=== PATIENT | male | born 1965 | race Caucasian/White ===

== ENCOUNTER 2024-05-30 10:29 | Emergency (ER) | payer OTHER ==
[2024-05-30] MEDS ORDERED: ONDANSETRON 4 MG/2 ML VIAL ONE (12:29)
[2024-05-30] MEDS ORDERED: ACETAMINOPHEN TAB 325 MG TAB ONE (12:30)
[2024-05-31] MEDS ORDERED: methylPREDNISolone SOD SUCCI 125 MG/2 ML VIAL ONE (09:33)
--- NOTE | 2024-06-30 10:16 | CT ---
EXAM: CT abdomen pelvis with IV contrast. DATE: 05/30/2024 INDICATION: Patient age:KEN CHENG : 1965 Reason for study: Lower Abd Pain X 2 weeks. COMPARISON: None, please note PACS downtime occurred during the radiologist interpretation of these i mages with limited priors/reports.. TECHNIQUE: CT abdomen pelvis with IV contrast, with axial imaging and sagittal and coronal reformats following t he administration of 100 cc of Isovue-300 IV contrast material.. One or more CT dose reduction strate gies were utilized during this examination. Total DLP administered was 741.6mGycm. FINDINGS: LOWER CHEST: Unremarkable ABDOMEN LIVER: Unremarkable GALLBLADDER AND BILE DUCTS: Irregular appearance of the gallbladder wall. PANCREAS: Unremarkable. SPLEEN: Unremarkable. ADRENAL GLANDS: Unremarkable. KIDNEYS AND URETERS: No evidence of hydronephrosis or renal calculus. The ureters are unremarkable. PELVIS BLADDER: Nodule of the left bladder wall measuring 9 mm and another measuring 4 mm. REPRODUCTIVE: Hydroceles bilaterally. ABDOMEN & PELVIS STOMACH AND BOWEL: Stomach and duodenum are unremarkable. The appendix is surgically absent. No evide nce of bowel obstruction. PERITONEUM: No evidence of pneumoperitoneum or free fluid. VASCULATURE: Mild atherosclerotic calcifications are present throughout the abdominal aorta and its b ranches. MUSCULOSKELETAL: Mild disc degeneration changes are present throughout the thoracolumbar spine. LYMPH NODES: No gross evidence for lymphadenopathy. SOFT TISSUE/ABDOMINAL WALL: Unremarkable IMPRESSION: 1. No evidence for acute lower quadrant process. 2. Focal thickening of the left bladder wall into areas, correlate with direct visualization to excl ude malignancy correlate with urinalysis. 3. Irregular appearance of the gallbladder wall with subtle nodularity. Correlate with ultrasound if not recently performed. Findings could represent adenomyomatosis.
== END 2024-05-30 16:40 | disposition home or self-care (01) ==
LOC: EC 10:29
CPT/HCPCS: 74177; 96374; 99284

== ENCOUNTER 2024-07-01 07:20 | Day surgery (SDC) | payer OTHER ==
[2024-06-30 09:13] VITALS: BMI 19.2
[2024-07-01 07:49] VITALS: TEMP 97
[2024-07-01] MEDS: IV FLUID CONTINUATION 1,000 ML IV ONE (07:57)
[2024-07-01] MEDS: LACTATED RINGERS 1,000 ML IV SCH (07:58)
[2024-07-01 08:03] LABS: Glucose,Whole Blood 98 mg/dL (70-110)
[2024-07-01] MEDS ORDERED: PROPOFOL 10 MG/ML 20 ML VIAL IV ONE (08:32)
[2024-07-01] MEDS ORDERED: LIDOCAINE 2% (PF) 20 MG/ML 5 ML VIAL ONE (08:32)
--- NOTE | 2024-07-01 09:01 | P.PCN ---
Date of Procedure: 07/01/24 Procedure(s) Performed: PREOPERATIVE DIAGNOSIS: Rectal bleeding, abdominal pain POSTOPERATIVE DIAGNOSIS: Gastritis with erosions, duodenitis, ascending colon polyp x 2, sigmoid colon polyp PROCEDURE: 1. EGD with biopsy 2. Colonoscopy with snare polypectomy [place] [facility] [place]: Erick Ortega M.D. SPECIMENS: Antrum, colon polyps ENDOSCOPIC PROCEDURE: The patient was on the endoscopy table in the left decubitus position. The Olympus gastroscope was inserted into the oropharynx and passed under direct visualization to the region of the third portion of the duodenum. From that point the scope was slowly withdrawn inspecting all surfaces carefully. There was mild duodenitis present in the first and second portion of the duodenum without ulceration noted. The pylorus was widely patent. The stomach was carefully inspected. There was gastritis with small erosions present. A biopsy of the antrum took place to rule out H. pylori. Retroflexion revealed a normal hiatus. The esophagus was then carefully examined. There were no neoplastic inflammatory or polypoid lesions throughout the visualized esophagus. The patient was kept on the endoscopy table in the left decubitus position. The Olympus colonoscope was inserted into the anus and passed under direct visualization to the base of the cecum. The appendiceal orifice was visualized. From that point the scope was slowly withdrawn inspecting all surfaces carefully. There were no neoplastic inflammatory or polypoid lesions throughout the cecum. In the ascending colon 2 polyps were seen and removed using the snare with cautery technique. The transverse descending colon appeared normal. In the sigmoid colon another small polyp was seen and removed in a similar fashion. The remainder of the sigmoid and rectum was normal. Digital rectal examination was normal. The patient was taken to the recovery room in stable c ondition per anesthesia guidelines. RECOMMENDATIONS: Await biopsy results. CAT scan noted from yesterday. Will order urology evaluation of bladder wall thickening and gallbladder ultrasound.
[2024-07-01 09:05] VITALS: RESP 16
[2024-07-01 09:30] VITALS: BP 183/91; PULSE 91
== END 2024-07-01 09:52 | disposition home or self-care (01) ==
LOC: ORWHC2ENDO 07:20
PROVIDERS: ATTEND Surgery
DX: K63.5 Polyp of colon (principal); K29.80 Duodenitis without bleeding; K29.70 Gastritis, unspecified, without bleeding; K25.9 Gastric ulcer, unspecified as acute or chronic, without hemorrhage or perforation
CPT/HCPCS: 43239; 45385; 88305; 88342

== ENCOUNTER → 2024-07-04 | Outpatient (CLI) | payer OTHER ==
--- NOTE | 2024-07-04 12:48 | US ---
EXAMINATION TYPE: US gallbladder DATE OF EXAM: 07/04/2024 COMPARISON: CT 2023 CLINICAL INDICATION: Male, 59 years old with history of R10.13 Epigastric pain; TECHNIQUE: Multiple sonographic images of the right upper quadrant are obtained. FINDINGS: EXAM MEASUREMENTS: Liver Length: 15.9 cm Gallbladder Wall: 0.2 cm CBD: 0.4 cm Right Kidney: 10.4 x 4.4 x 4.6 cm Pancreas: visualized portions wnl, limited by overlying midline bowel gas Liver: wnl Gallbladder: full of stones, visualized portions of wall appear wnl Evidence for sonographic Cruz's sign: no CBD: visualized portions wnl, limited by overlying bowel gas Right Kidney: wnl The visualized portions of the pancreas unremarkable. Liver is unremarkable without focal lesion. Gal lbladder is full of shadowing stones. No wall thickening. No surrounding fluid. Negative sonographic Cruz sign. Common bile duct is within normal limits. Right kidney is unremarkable without evidence of shadowing calculi, hydronephrosis, or solid mass. IMPRESSION: Gallbladder is full of stones without ultrasound evidence for acute cholecystitis.
== END | disposition home or self-care (01) ==
LOC: RADUSWWP 09:08
PROVIDERS: ATTEND Surgery
DX: K80.20 Calculus of gallbladder without cholecystitis without obstruction (principal)
CPT/HCPCS: 76705

== ENCOUNTER → 2024-08-08 | Outpatient (CLI) | payer OTHER ==
[2024-08-08 15:24] LABS: Basophils # (A) 0.05 X 10*3/uL (0.00-0.10); Basophils % (A) 0.8 %; Eosinophils # (A) 0.66 X 10*3/uL (0.04-0.35); HCT 48.1 % (39.6-50.0); HGB 15.4 g/dL (13.0-17.0); Lymphocytes # (A) 1.25 X 10*3/uL (0.90-5.00); Lymphocytes % (A) 18.9 %; MCH 28.6 pg (27.0-32.0); MCV 89.4 FL (80.0-97.0); Mean Platelet Volume 11.8 FL (9.5-12.2); Monocytes # (A) 0.48 X 10*3/uL (0.20-1.00); Monocytes % (A) 7.3 %; NRBC Per 100 WBC 0 X 10*3/uL (0.00-0.01); Neutrophils # (A) 4.15 X 10*3/uL (1.80-7.70); Neutrophils % (A) 62.5 %; Platelet Count 172 X 10*3/uL (140-440); RBC 5.38 X 10*6/uL (4.40-5.60); RDW 15.1 % (11.5-14.5); WBC 6.62 X 10*3/uL (4.50-10.00)
[2024-08-08 15:36] LABS: BUN/Creat Ratio 8.22 Ratio (12.00-20.00); Blood Urea Nitrogen 7.4 mg/dL (9.0-27.0); Chloride 102 mmol/L (96-109); Glucose 92 mg/dL (70-110); Potassium 4.6 mmol/L (3.5-5.5); Sodium 141 mmol/L (135-145)
== END | disposition home or self-care (01) ==
LOC: LABWHC1 08:43
PROVIDERS: ATTEND Urology
DX: C67.9 Malignant neoplasm of bladder, unspecified (principal)
CPT/HCPCS: 36415; 80048; 85025

== ENCOUNTER → 2024-09-15 | Day surgery (SDC) | payer OTHER ==
[2024-09-12 10:59] VITALS: BMI 20.7
[~2024-09-15] MED LIST: ACETAMINOPHEN TAB 325 MG TAB PO SCH; GLYCOPYRROLATE 0.2 MG/ML 2 ML VIAL ONE; HYDROmorphone (PF) 1 MG/ML ONE; IBUPROFEN 600 MG TAB PO SCH; KETOROLAC 15 MG/ML 1 ML VIAL ONE; LIDOCAINE 1% (10MG/ML) FOR IV START INTRADERMA PRN; LIDOCAINE 1% INJ 10MG/ML (20 ML MDV) ONE; MIDAZOLAM 2 MG/2 ML VIAL ONE; NEOSTIGMINE 1 MG/ML 10 ML VIAL ONE; PROPOFOL 10 MG/ML 20 ML VIAL IV ONE; ROCURONIUM 10 MG/ML (5 ML VIAL) IV ONE; SUCCINYLCHOLINE CHLORIDE 200 MG/10 ML VIAL IV ONE; droPERidol 5 MG/2 ML VIAL IVP ONE; fentaNYL (PF) 50 MCG/ML 2 ML AMP ONE
[2024-09-15] MEDS: IV FLUID CONTINUATION 1,000 ML IV ONE (08:00)
[2024-09-15] MEDS: HEPARIN SODIUM,PORCINE 5,000 UNIT/ML 1 ML VIAL SQ PRN (08:18)
[2024-09-15] MEDS: LACTATED RINGERS 1,000 ML IV SCH (08:19)
[2024-09-15] MEDS: ACETAMINOPHEN TAB 500 MG TAB PO PRN (08:19)
[2024-09-15] MEDS: ONDANSETRON 4 MG/2 ML VIAL IVP ONE (08:19)
[2024-09-15] MEDS: DEXAMETHASONE SOD PHOSPHATE 4 MG/ML 1 ML VIAL IVP STA (08:20)
--- NOTE | 2024-09-15 08:33 | P.GSHP ---
History of Present Illness H&P Date: 09/15/24 Chief Complaint: Chronic cholecystitis 59-year-old male seen in the office in June. Patient was having complaints of upper abdominal pain, early satiety, weight loss, some melanotic stools although taking Pepto dismal. Patient underwent upper and lower endoscopy. Ashish jarvis that ordered a CAT scan abdomen pelvis which showed gallbladder nodularity and thickening of his bladder wall. Patient was seen by urology. He was found to have a small bladder tumor that was treated endoscopically. Patient had an ultrasound showing numerous gallstones. Patient still having abdominal issues and complaints of nausea, early satiety, and upper abdominal pain. Spoke with patient by phone and have decided to proceed with laparoscopic cholecystectomy at this time. Past Medical History Past Medical History: Diabetes Mellitus, GERD/Reflux, Hypertension Additional Past Medical History / Comment(s): no HTN medication currently. diet controlled DM. GALLBLADDER DISORDER History of Any Multi-Drug Resistant Organisms: None Reported Past Surgical History: Appendectomy Additional Past Surgical History / Comment(s): COLONOSCOPY/EGD Past Anesthesia/Blood Transfusion Reactions: No Reported Reaction Smoking Status: Current every day smoker - Past Family History Mother Family Medical History: Cancer Father Family Medical History: Cancer Sister(s) Family Medical History: Cancer Medications and Allergies Home Medications Medication Instructions Recorded Confirmed Type Ondansetron [Zofran] 4 mg PO Q8HR PRN 06/30/24 09/15/24 History Omeprazole [PriLOSEC] 20 mg PO AC-BRKFST #90 cap 07/01/24 09/15/24 Rx Acetaminophen [Tylenol] 650 mg PO DAILY PRN 09/15/24 09/15/24 History Allergies Allergy/AdvReac Type Severity Reaction Status Date / Time No Known Allergies Allergy Verified 09/15/24 07:59 Surgical - Exam Vital Signs Temp Pulse Resp BP Pulse Ox 97.0 F L 79 16 187/85 99 09/15/24 07:57 09/15/24 07:57 09/15/24 07:57 09/15/24 07:57 09/15/24 07:57 Physical exam: General: Well-developed, thin appearing HEENT: Normocephalic, sclerae nonicteric Abdomen: Nontender, nondistended Extremities: No edema Neuro: Alert and oriented Assessment and Plan (1) Chronic cholecystitis Narrative/Plan: Will proceed with laparoscopic, possible open cholecystectomy at this time. Risks of bleeding, infection, bile leak, bile duct injury, retained common bile duct stone, trocar injury, conversion to an open procedure, hernia, anesthesia related complications were reviewed. The patient understands and wishes to proceed. Current Visit: Yes Status: Acute Code(s): K81.1 - CHRONIC CHOLECYSTITIS SNOMED Code(s): 06070253
[2024-09-15] MEDS: IPRATROPIUM-ALBUTEROL 3 ML NEB INHALATION STA (08:34)
[2024-09-15] MEDS: BUPIVACAINE (PF) 0.25% 30 ML VIAL SQ ONE ×2 (09:46)
[2024-09-15] MEDS: LACTATED RINGERS 1,000 ML IV ONE (09:56)
[2024-09-15 11:03] VITALS: TEMP 97.4
--- NOTE | 2024-09-15 11:06 | P.OP ---
Date of Procedure: 09/15/24 Procedure(s) Performed: PREOPERATIVE DIAGNOSIS: Chronic cholecystitis POSTOPERATIVE DIAGNOSIS: Same PROCEDURE: Laparoscopic cholecystectomy SURGEON: Shannon EBL: Minimal see anesthesia record ANESTHESIA: Gen. COMPLICATIONS: None OPERATIVE PROCEDURE: The patient was brought and placed on the operating room table in the supine position. The patient was placed under general anesthesia at that time. The abdomen was prepped and draped in the usual sterile fashion. A small vertical infraumbilical incision was made. The fascia was grasped with the Sindhu forceps. The fascia was retracted anteriorly. The Veress needle was advanced into the peritoneal cavity. The saline drop test was normal. Insufflation took place up to 15 mmHg. A 5 mm optical trocar was advanced and the peritoneal cavity. 2 additional 5 mm trochars were placed in the right upper quadrant under direct visualization. A 12 mm trocar was advanced into the epigastric incision site. The gallbladder was extremely indurated and essentially solid. There was some adhesions between the omentum and the gallbladder that were lysed using electrocautery. Thankfully once we were able to visualize the infundibulum of the junction with the common bile duct and distal infundibulum were more mobile. The patient's hepatic artery was ex tremely close to the infundibulum in this case. With careful dissection I was able to visualize not only the cystic artery but the cystic duct nicely. The cystic duct was divided after the placement of 3 clips on the patient's side and 1 clip on the specimen side. The adjacent cystic artery was clipped as well. There were many areas where the scar tissue created adhesive bands. Many of these were clipped using a single clip given the proximity to the hepatic artery. The gallbladder was then removed from the liver bed using electrocautery. The gallbladder was then removed from the epigastric trocar site with an Endo Catch bag. This required lengthening of our skin incision and the fascia. The gallbladder fossa was irrigated with saline. There was no evidence of any bleeding or biliary drainage seen. The fascia at the 12 millimeter site was closed using a running 0 Vicryl stitch. The trochars were then removed. The skin at all 4 sites was closed using a 4-0 Monocryl stitch. Skin glue was utilized on the incision sites. At the end of this procedure the sponge and needle counts were correct. DISPOSITION: Stable to the recovery room
[2024-09-15 11:27] LABS: Glucose,Whole Blood 142 mg/dL (70-110)
[2024-09-15] MEDS: HYDROmorphone 0.5 MG/0.5 ML SYRINGE IVP PRN (11:58)
[2024-09-15 14:08] VITALS: RESP 18
[2024-09-15 14:29] VITALS: BP 162/73; PULSE 77
[2024-09-15 14:34] LABS: Glucose,Whole Blood 147 mg/dL (70-110)
[2024-09-15] MEDS: ONDANSETRON ODT 4 MG TAB PO STA (14:40)
[2024-09-16 01:35] LABS: Glucose,Whole Blood 99 mg/dL (70-110)
== END ==
LOC: OR 07:22
PROVIDERS: ATTEND Surgery
DX: K80.12 Calculus of gallbladder with acute and chronic cholecystitis without obstruction (principal); E11.9 Type 2 diabetes mellitus without complications; I10 Essential (primary) hypertension; K21.9 Gastro-esophageal reflux disease without esophagitis; F17.200 Nicotine dependence, unspecified, uncomplicated; Z90.49 Acquired absence of other specified parts of digestive tract
CPT/HCPCS: 47562; 88304; J2250; J0330; J1644; J1100; J2710; J0690; J2405; J2003; J3010; J1171 ×2; J1885; J2704; J0665; J1596

== ENCOUNTER → 2025-01-21 | Outpatient (CLI) | payer OTHER ==
--- NOTE | 2025-01-21 09:45 | XR ---
EXAMINATION TYPE: XR chest 2V DATE OF EXAM: 01/21/2025 9:34 AM COMPARISON: None CLINICAL INDICATION: Male, 59 years old with history of J45.909 Z00.00 Z12.5 I10 Z11.59, chronic coug h, TECHNIQUE: Frontal and lateral views FINDINGS: The cardiomediastinal silhouette, aorta, and pulmonary vasculature are within normal limits. There is hyperinflation without consolidation or pleural effusion. Suggestion of a tiny calcified granuloma p osterior right midlung. IMPRESSION: COPD. No acute cardiopulmonary process. Correlate with smoking history. [facility], Workstation: [facility], 01/21/2025 9:43 AM
[2025-01-21 14:55] LABS: Basophils # (A) 0.05 X 10*3/uL (0.00-0.10); Basophils % (A) 0.7 %; Eosinophils # (A) 0.42 X 10*3/uL (0.04-0.35); Eosinophils % (A) 6.3 %; HCT 45.3 % (39.6-50.0); HGB 14.3 g/dL (13.0-17.0); Lymphocytes # (A) 1.48 X 10*3/uL (0.90-5.00); Lymphocytes % (A) 22.1 %; MCH 28.1 pg (27.0-32.0); MCHC 31.6 g/dL (32.0-37.0); Mean Platelet Volume 11.8 FL (9.5-12.2); Monocytes # (A) 0.34 X 10*3/uL (0.20-1.00); Monocytes % (A) 5.1 %; NRBC Per 100 WBC 0 X 10*3/uL (0.00-0.01); Neutrophils # (A) 4.38 X 10*3/uL (1.80-7.70); Neutrophils % (A) 65.5 %; Platelet Count 184 X 10*3/uL (140-440); RBC 5.09 X 10*6/uL (4.40-5.60); WBC 6.69 X 10*3/uL (4.50-10.00)
[2025-01-21 15:23] LABS: ALT 12 U/L (10-49); AST 17 U/L (14-35); Albumin/Globulin Ratio 1.33 Ratio (1.60-3.17); Alkaline Phosphatase 102 U/L (41-126); BUN/Creat Ratio 4.62 Ratio (12.00-20.00); Blood Urea Nitrogen 3.7 mg/dL (9.0-27.0); Calcium 9.6 mg/dL (8.7-10.3); Carbon Dioxide 27.6 mmol/L (21.6-31.8); Chloride 102 mmol/L (96-109); Glucose 104 mg/dL (70-110); LDL Cholesterol,Calculated 139.1 mg/dL (0.0-131.0); Magnesium 1.8 mg/dL (1.5-2.4); Potassium 3.8 mmol/L (3.5-5.5); Prostate Specific Antigen 2.22 ng/mL (0.000-4.500); Sodium 140 mmol/L (135-145); Total Bilirubin 0.4 mg/dL (0.3-1.2)
== END | disposition home or self-care (01) ==
LOC: LABWHC1 09:14
PROVIDERS: ATTEND Internal Medicine
DX: Z00.00 Encounter for general adult medical examination without abnormal findings (principal); Z12.5 Encounter for screening for malignant neoplasm of prostate; Z11.59 Encounter for screening for other viral diseases; I10 Essential (primary) hypertension; J44.9 Chronic obstructive pulmonary disease, unspecified
CPT/HCPCS: 36415; 71046; 80053; 80061; 83735; 84153; 84443; 85025; 86803